=== PATIENT | female | born 1960 | race Caucasian/White ===

== ENCOUNTER 2016-08-09 00:42 | Inpatient (IN) | payer OTHER ==
[~2016-08-09] VITALS: Ht 157.5 cm; Wt 59.1 kg
[2016-08-09] VITALS (13 sets, daily range): BP systolic 93–147; BP diastolic 53–78; PULSE 73–96; RESP 16–24; TEMP 97.1–98.3; O2SAT 92–98
[~2016-08-09 00:42] MED LIST: ALEN1TAB48 PO; ASPI1TAB69 PO; CITA40TA4 PO; IPRASOL INH; LORA1TAB12 PO; MAGN400T2 PO; MONT10TA4 PO; MULT-120 PO; OMEP40CA2 PO; PERM5CRE TOPICAL; PRED10 PO; SACC1CAP3 PO; SYMB160A INH; THEO400T2 PO; TRAZ150T75 PO; VENTAER INH
--- NOTE | 2016-08-09 01:11 | PD ---
HPI Chief Complaint: Respiratory Symptoms Time Seen by Provider: 01:05 Travel History International Travel<30 days: No Contact w/Intl Traveler<30days: No Traveled to known affect area: No History of Present Illness HPI 56-year-old female presents to the emergency department by private transportation for complaint of progressively worsening shortness of breath with cough productive of green sputum 4 days. Patient has felt hot and cold but does not know she's had a fever she's been taking high-dose ibuprofen for musculoskeletal pain associated with possible lupus versus fibromyalgia. She is in the process of having an autoimmune workup by her primary care physician. 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 Patient did have a flu vaccine this season. Patient states she typically does not have yellow-green phlegm production. Patient did have use of her nebulized treatment DuoNeb just prior to arrival to the emergency department at her home. Patient continues to smoke cigarettes daily. Patient also reports prior history of myocardial infarction several years ago under cardiac catheterization which revealed 40% blockage of a single-vessel and did not have stenting. Patient does not report any chest pain or orthopnea PND or peripheral edema. PFSH Past Medical History Narrative Medical COPD, emphysema, CAD, myocardial infarction, cardiac catheterization, dyslipidemia, hypertension, sleep apnea, anxiety depression, GERD, , lap cholecystectomy, tobacco use, nursing notes reviewed Hx Anticoagulant Therapy: Yes (asa 81mg) Arthritis: No Asthma: No Autoimmune Disease: No Anxiety: Yes Depression: Yes Heart Rhythm Problems: Yes Cancer: No Cardiac Catheterization: Yes Cardiovascular Problems: Yes ([place] 2007) High Cholesterol: Yes Chemotherapy: No Chest Pain: No Congestive Heart Failure: No COPD: Yes Cerebrovascular Accident: No Diabetes: No Diminished Hearing: No Endocrine: No Gastrointestinal Disorders: Yes (GERD, CONSTIPATION) GERD: Yes Genitourinary: No Headaches: No Hepatitis: No Hiatal Hernia: No Hypertension: No Immune Disorder: No Implanted Vascular Access Dvce: No Kidney Stones: No Musculoskeletal: Yes (OSTEOPOROSIS) Neurologic: No Psychiatric: Yes (ANXIETY) Reproductive: No Respiratory: Yes (copd) Immunizations Current: Yes Migraines: No Myocardial Infarction: Yes Radiation Therapy: No Renal Failure: No Seizures: No Sickle Cell Disease: No Sleep Apnea: Yes Thyroid Disease: No Ulcer: No Menopausal: Yes : 3 Para: 1 Past Surgical History Abdominal Surgery: Yes (LAP. OBDULIO, HERNIA REPAIR) AICD: No Arteriovenous Shunt: No Section: Yes Cholecystectomy: Yes Ear Surgery: No Eye Surgery: No Genitourinary Surgery: Yes (KIDNEY BX) Gynecologic Surgery: Yes (C SECTION, MULTIPLE LAPAROSCOPIES,LYSIS ADHESIONS) Insulin Pump: No Joint Replacement: No Neurologic Surgery: No Oral Surgery: No Pacemaker: No Other Surgery: Yes Social History Alcohol Use: Yes (RARE) Tobacco Use: Yes (1 - 2 PPD) Substance Use: No Allergies-Medications (Allergen,Severity, Reaction): Coded Allergies: Keflex (Verified Allergy, Severe, Nausea/Vomiting, 08/09/16) Reported Meds & Prescriptions Reported Meds & Active Scripts Active Permethrin Topical (Permethrin) 5% Cream 1 Applic TOPICAL ONCE Reported Prednisone 10 Mg Tab 10 Mg PO EVERY OTHER DAY Ventolin Hfa 18 GM Inh (Albuterol Sulfate) 90 Mcg/Act Aer 2 Puff INH Q4H PRN Symbicort Inh (Budesonide/Formoterol Fumarate) 160-4.5 Mcg/Act Aero 2 Puff INH Q12HR Duoneb (Ipratropium-Albuterol Neb) 0.5-2.5 Mg/3 Ml Neb 1 Nebule INH Q6HR NEB PRN Multivitamin Women (Multiple Vitamins W/ Minerals) 1 Tab Tab 1 Tab PO DAILY Trazodone (Trazodone HCl) 150 Mg Tab 150 Mg PO HS Magnesium Oxide 400 Mg Tab 400 Mg PO DAILY Aspirin 81 Mg Tabdr 81 Mg PO DAILY Probiotic (Saccharomyces Boulardii) 250 Mg Cap 250 Mg PO DAILY Lorazepam 1 Mg Tab 1 Mg PO BID PRN Citalopram (Citalopram Hydrobromide) 40 Mg Tab 40 Mg PO DAILY Alendronate (Alendronate Sodium) 70 Mg Tab 70 Mg PO Q7D Montelukast (Montelukast Sodium) 10 Mg Tab 10 Mg PO HS Omeprazole 40 Mg Cap 40 Mg PO DAILY Theophylline ER 24 HR (Theophylline) 400 Mg Tab 400 Mg PO DAILY Review of Systems Except as stated in HPI: all other systems reviewed are Neg Physical Exam Narrative GENERAL: Well-developed well-nourished female in moderate respiratory distress with intermittent congested cough supplemental oxygen 2 L per minute nasal cannula O2 saturation 97% SKIN: Warm and dry. HEAD: Normocephalic. EYES: No scleral icterus. No injection or drainage. NECK: Supple, trachea midline. No JVD or lymphadenopathy. CARDIOVASCULAR: Regular rate and rhythm without murmurs, gallops, or rubs. RESPIRATORY: Breath sounds equal bilaterally diminished bilaterally with wheezing. No accessory muscle use. GASTROINTESTINAL: Abdomen soft, non-tender, nondistended. MUSCULOSKELETAL: No cyanosis, or edema. BACK: Nontender without obvious deformity. No CVA tenderness. Data Data Orders Complete Blood Count With Diff (08/09/16 01:05) Comprehensive Metabolic Panel (08/09/16 01:05) Magnesium (Mg) (08/09/16 01:05) Troponin I (08/09/16 01:05) Blood Culture (08/09/16 01:05) Iv Access Insert/Monitor (08/09/16 01:05) Electrocardiogram (08/09/16 01:05) Ecg Monitoring (08/09/16 01:05) Oximetry (08/09/16 01:05) Oxygen Administration (08/09/16 01:05) Chest, Single Ap (08/09/16 01:05) Sodium Chloride 0.9% Flush (Ns Flush) (08/09/16 01:15) Methylprednisolone So Succ Inj (Solumedr (08/09/16 01:15) Albuterol-Ipratropium Neb (Duoneb Neb) (08/09/16 01:15) MDM Medical Decision Making Medical Screen Exam Complete: Yes Emergency Medical Condition: Yes Medical Record Reviewed: Yes Interpretation(s) EKG: Normal sinus rhythm with occasional PACs no acute ST elevation nonspecific inferior ST segment flattening Differential Diagnosis Exacerbation COPD, acute bronchitis, pneumonia, CHF, ACS, myocardial infarction Narrative Course Patient placed on precision assembler bench IV access obtained specimens collected and sent for resulting patient administered Solu-Medrol 125 mg IV as well as DuoNeb updrafts 2 Mell Sands MD Aug 09, 2016 01:11
[2016-08-09] MEDS ORDERED: SODIUM CHLORIDE 0.9% FLUSH 5 ML FLUSH IVF PRN ×2 (01:15→02:45)
[2016-08-09] MEDS: RESP: ALBUTEROL 2.5 MG/IPRATROPIUM 0.5 MG NEB (SCH) INH ×2 (01:15→01:23)
[2016-08-09] MEDS ORDERED: methylPREDNISolone SOD SUCC 125 MG/2 ML VIAL IVP ONE (01:15)
[2016-08-09 01:22] LABS: AUTOMATED NEUTROPHIL # 6.7 TH/MM3 (1.8-7.7); BASOPHIL # 0.1 TH/MM3 (0-0.2); BASOPHIL % 0.8 % (0.0-2.0); EOSINOPHIL # 0.5 TH/MM3 (0-0.4); EOSINOPHIL % 4.2 % (0.0-4.0); HEMATOCRIT 38.2 % (35.0-46.0); LYMPH % 26.7 % (9.0-44.0); LYMPHOCYTE # 3.1 TH/MM3 (1.0-4.8); MEAN CELL VOLUME 91.4 FL (80.0-100.0); MEAN CORPUSCULAR HGB CONC 32.8 % (32.0-36.0); NEUT % 57.3 % (16.0-70.0); PLATELET COUNT 309 TH/MM3 (150-450); RED BLOOD COUNT 4.18 MIL/MM3 (4.00-5.30); RED CELL DISTRIBUTION WIDTH 13.6 % (11.6-17.2); WHITE BLOOD COUNT 11.7 TH/MM3 (4.0-11.0)
[2016-08-09 01:24] LABS: HEMO FLAGS DIFF FINAL
[2016-08-09 01:30] LABS: CHLORIDE 108 MEQ/L (98-107); POTASSIUM 3.3 MEQ/L (3.5-5.1); SODIUM (NA) 144 MEQ/L (136-145)
[2016-08-09] MEDS ORDERED: CYCL1TAB29 PO (01:30)
[2016-08-09] MEDS ORDERED: IBUP800T23 PO (01:30)
[2016-08-09 01:33] LABS: ANION GAP 10 MEQ/L (5-15); BICARBONATE 25.7 MEQ/L (21.0-32.0); BLOOD UREA NITROGEN 8 MG/DL (7-18)
[2016-08-09 01:36] LABS: ALT (GPT) 32 U/L (10-53); AST (GOT) 15 U/L (15-37); GLOMERULAR FILTRATION RATE 81 ML/MIN (>89)
[2016-08-09 01:38] LABS: TOTAL BILIRUBIN ADULT 0.2 MG/DL (0.2-1.0)
[2016-08-09 01:39] LABS: ALKALINE PHOSPHATASE 68 U/L (45-117)
[2016-08-09] MEDS ORDERED: RESP: ALBUTEROL 2.5 MG/IPRATROPIUM 0.5 MG NEB (SCH) NEB ONE (02:00)
[2016-08-09] MEDS ORDERED: AZITHROMYCIN INJ 500 MG in SODIUM CHLOR 0.9% 250 ML INJ 250 ML IV ONE (02:00)
--- NOTE | 2016-08-09 02:02 | RADHPO ---
EXAM DATE/TIME: 08/09/2016 01:34 [facility] COMPARISON: CHEST SINGLE AP, July 01, 2015, 12:18. INDICATIONS : Short of breath MEDICAL HISTORY : Chronic obstructive pulmonary disease. SURGICAL HISTORY : None. ENCOUNTER: Initial ACUITY: 4 - 6 days PAIN SCORE: Non-responsive. LOCATION: Bilateral chest FINDINGS: A single frontal view of the chest shows bullous emphysematous changes. No infiltrate or effusion. He art normal in size. Scoliotic curvature to the spine. CONCLUSION: Bullous emphysematous changes. No acute abnormality. Krish Navarro Jr., MD on August 09, 2016 at 2:00 Board Certified Radiologist. This report was verified electronically.
[2016-08-09] MEDS ORDERED: ONDANSETRON HCL 4 MG/2 ML VIAL IVP PRN (02:45)
[2016-08-09] MEDS ORDERED: BISACODYL 10 MG SUPP PR PRN (02:45)
[2016-08-09] MEDS ORDERED: ACETAMINOPHEN/HYDROcodone 325 MG/10 MG TAB PO PRN (02:45)
[2016-08-09] MEDS ORDERED: ACETAMINOPHEN 325 MG TAB PO PRN (02:45)
[2016-08-09] MEDS: RESP: ALBUTEROL 2.5 MG/IPRATROPIUM 0.5 MG NEB (PRN) NEB (05:18)
[2016-08-09] MEDS: LORazepam 1 MG TAB PO PRN ×2 (05:24→20:33)
[2016-08-09] MEDS: methylPREDNISolone SOD SUCC 40 MG/1 ML VIAL IV PUSH SCH ×4 (05:36→23:07)
[2016-08-09] MEDS: ACETAMINOPHEN/HYDROcodone 325 MG/5 MG TAB PO PRN ×2 (05:40→11:14)
[2016-08-09] MEDS: RESP: ALBUTEROL 2.5 MG/IPRATROPIUM 0.5 MG NEB (SCH) NEB ×4 (07:45→19:41)
[2016-08-09] MEDS ORDERED: SODIUM CHLORIDE 0.9% FLUSH 5 ML FLUSH IVF SCH (09:00)
[2016-08-09] MEDS: BUDESONIDE-FORMOTEROL 160/4.5 MCG INHALER INH SCH ×2 (09:12→20:32)
[2016-08-09] MEDS: guaiFENesin E.R. 600 MG TAB PO SCH ×2 (09:13→20:32)
[2016-08-09] MEDS: MAGNESIUM OXIDE 400 MG TAB PO SCH (09:13)
[2016-08-09] MEDS: THEOPHYLLINE 200 MG EXTENDED RELEASE CAP PO SCH (09:13)
[2016-08-09] MEDS: MULTIVITAMINS/MINERALS THERAPEUTIC TAB PO SCH (09:13)
[2016-08-09] MEDS: ASPIRIN EC 81 MG TABEC PO SCH (09:13)
[2016-08-09] MEDS: SODIUM CHLORIDE 0.9% FLUSH 5 ML FLUSH FLUSH SCH ×2 (09:14→20:31)
[2016-08-09] MEDS: LEVOFLOXACIN 750 MG PREMIX INJ 150 ML IV SCH (09:14)
[2016-08-09] MEDS: CITALOPRAM HYDROBROMIDE 40 MG TAB PO SCH (09:14)
[2016-08-09] MEDS: PANTOPRAZOLE SOD 40 MG DELAYED RELEASE TAB PO SCH (09:15)
[2016-08-09] MEDS ORDERED: POTASSIUM CHLORIDE 20 MEQ CONTROLLED RELEASE TAB PO ONE (16:45)
[2016-08-09] MEDS ORDERED: ENOXAPARIN SODIUM 40 MG/0.4 ML SYRINGE SQ SCH (17:00)
--- NOTE | 2016-08-09 17:02 | HHI.HP ---
cc: Maxi Mireles MD [facility] Primary [facility] Physician Maxi Mireles MD Admission Diagnosis exacerbation COPD/bronchitis Diagnoses: (1) COPD exacerbation Diagnosis: Principal (2) Leukocytosis Diagnosis: Principal (3) Hypokalemia Diagnosis: Principal Chief Complaint: cough, tight Travel History International Travel<30 Days: No Contact w/Intl Traveler <30 Da: No Traveled to Known Affected Are: No History of Present Illness 56-year-old female with history of COPD/emphysema, CAD, hypertension, hyperlipidemia, sleep apnea, GERD, anxiety and depression currently undergoing an autoimmune workup is admitted for COPD exacerbation. Patient states symptoms started on which was 4 days ago. She admits to having sweats and chills as well as productive cough of green sputum. She states she has been alternating ibuprofen 800 mg and Tylenol. She states she has sore throat on Tuesday and runny nose. Denies any rashes. Denies any leg edema. Patient 's senior process engineer is Dr. Flowers. Patient's primary care physician is Dr. Mireles. Patient states she is not coughing up as much but is still tight. She additionally states she has been having "squeezing" chest pain over the past week coming and going with associated shortness of breath and pain on exertion. She states she had take three 325 mg aspirin. She does not indicate current chest pain. 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 History of cardiac cath, but no stents. Review of Systems Other ROS x 10 negative unless otherwise stated in history of present illness. Past Family Social History Past Medical History COPD Coronary artery disease, [place] 2008 Hyperlipidemia Hypertension Sleep apnea Anxiety and depression GERD Past Surgical History per EMR Laparoscopic cholecystectomy hernia repair Multiple laparoscopies, lysis of adhesions Kidney biopsy Reported Medications Flexeril (Cyclobenzaprine HCl) 10 Mg Tab 10 Mg PO TID Ibuprofen 800 Mg Tab 800 Mg PO Q8H PRN Prednisone 10 Mg Tab 10 Mg PO EVERY OTHER DAY Ventolin Hfa 18 GM Inh (Albuterol Sulfate) 90 Mcg/Act Aer 2 Puff INH Q4H PRN Symbicort Inh (Budesonide/Formoterol Fumarate) 160-4.5 Mcg/Act Aero 2 Puff INH Q12HR Duoneb (Ipratropium-Albuterol Neb) 0.5-2.5 Mg/3 Ml Neb 1 Nebule INH Q6HR NEB PRN Multivitamin Women (Multiple Vitamins W/ Minerals) 1 Tab Tab 1 Tab PO DAILY Trazodone (Trazodone HCl) 150 Mg Tab 150 Mg PO HS Magnesium Oxide 400 Mg Tab 400 Mg PO DAILY Aspirin 81 Mg Tabdr 81 Mg PO DAILY Probiotic (Saccharomyces Boulardii) 250 Mg Cap 250 Mg PO DAILY Lorazepam 1 Mg Tab 1 Mg PO BID PRN Citalopram (Citalopram Hydrobromide) 40 Mg Tab 40 Mg PO DAILY Alendronate (Alendronate Sodium) 70 Mg Tab 70 Mg PO Q7D Montelukast (Montelukast Sodium) 10 Mg Tab 10 Mg PO HS Omeprazole 40 Mg Cap 40 Mg PO DAILY Theophylline ER 24 HR (Theophylline) 400 Mg Tab 400 Mg PO DAILY Allergies: Coded Allergies: Keflex (Verified Allergy, Severe, Nausea/Vomiting, 08/09/16) Family History Father: of [place] at age 42. Mother: of [place] at age 58. Sister: Lupus Social History Patient smokes 1-2 packs per day of cigarettes. Rarely drinks alcohol, once per year. Physical Exam Vital Signs Vital Signs Date Time Temp Pulse Resp B/P Pulse Ox O2 Delivery O2 Flow Rate FiO2 08/09/16 12:00 98.3 96 22 122/73 95 08/09/16 10:05 89 08/09/16 09:03 85 18 116/70 96 Nasal Cannula 2 08/09/16 07:45 96 Nasal Cannula 2.00 08/09/16 07:04 103 18 96 Nasal Cannula 2 08/09/16 07:00 90 93/53 96 Nasal Cannula 2 08/09/16 05:43 85 20 112/72 96 Nasal Cannula 2 08/09/16 04:10 96 Nasal Cannula 2 08/09/16 04:10 77 16 127/65 98 Nasal Cannula 2 08/09/16 01:00 30 93 Nasal Cannula 2 08/09/16 01:00 93 Nasal Cannula 2.00 08/09/16 01:00 93 Nasal Cannula 2 08/09/16 00:45 98.2 89 24 147/66 92 Physical Exam GENERAL: This is a well-nourished, well-developed patient, in no apparent distress. SKIN: No rashes, ecchymoses or lesions. Cool and dry. HEAD: Atraumatic. Normocephalic. EYES: No scleral icterus. No injection or drainage. ENT: Throat without erythema, tonsillar hypertrophy or exudate. Uvula midline. Airway patent. NECK: Trachea midline. CARDIOVASCULAR: Regular rate and rhythm without. RESPIRATORY: Tight. RR normal. MUSCULOSKELETAL: No lower extremity edema. NEUROLOGICAL: Awake and alert. Motor grossly within normal limits. Normal speech. Laboratory Laboratory Tests Test 08/09/16 01:00 White Blood Count 11.7 Red Blood Count 4.18 Hemoglobin 12.5 Hematocrit 38.2 Mean Corpuscular Volume 91.4 Mean Corpuscular Hemoglobin 30.0 Mean Corpuscular Hemoglobin 32.8 Concent Red Cell Distribution Width 13.6 Platelet Count 309 Mean Platelet Volume 8.0 Neutrophils (%) (Auto) 57.3 Lymphocytes (%) (Auto) 26.7 Monocytes (%) (Auto) 11.0 Eosinophils (%) (Auto) 4.2 Basophils (%) (Auto) 0.8 Neutrophils # (Auto) 6.7 Lymphocytes # (Auto) 3.1 Monocytes # (Auto) 1.3 Eosinophils # (Auto) 0.5 Basophils # (Auto) 0.1 CBC Comment DIFF FINAL Differential Comment Sodium Level 144 Potassium Level 3.3 Chloride Level 108 Carbon Dioxide Level 25.7 Anion Gap 10 Blood Urea Nitrogen 8 Creatinine 0.74 Estimat Glomerular Filtration 81 Rate Random Glucose 99 Calcium Level 9.0 Magnesium Level 2.0 Total Bilirubin 0.2 Aspartate Amino Transf 15 (AST/SGOT) Alanine Aminotransferase 32 (ALT/SGPT) Alkaline Phosphatase 68 Troponin I LESS THAN 0.02 B-Type Natriuretic Peptide 22 Total Protein 7.2 Albumin 3.5 Date/Time Procedure Status Source Growth 08/09/16 03:59 Gram Stain Received Sputum Expectorated Sputum Pending 08/09/16 03:59 Sputum Culture Received Sputum Expectorated Sputum Pending 08/09/16 02:30 Aerobic Blood Culture Received Blood Peripheral Pending 08/09/16 02:30 Anaerobic Blood Culture Received Blood Peripheral Pending Result Diagram: 08/09/16 0100 08/09/16 0100 Imaging Last Impressions Chest X-Ray 08/09/16 0105 Signed Impressions: Service Date/Time: Tuesday, August 09, 2016 01:34 - CONCLUSION: Bullous emphysematous changes. No acute abnormality. Krish Navarro Jr., MD Assessment and Plan Assessment and Plan 56-year-old female with: COPD exacerbation: Patient tight with productive cough. Afebrile. 92% oxygen saturation on room air on arrival. WBC 11.7. Chest x-ray personally reviewed with pulse of erythematous changes. Patient received one dose of azithromycin, DuoNeb's 2, and 125 mg slightly Medrol the ED. -Continue Levaquin. -Continue Solu-Medrol 40 mg every 6 hours -DuoNeb's every 4 hours while awake -DuoNeb's every 2 hours prn -O2 prn -Continue Symbicort, Singulair, and theophylline -Sputum culture pending. Hypokalemia: Mild 3.3. -20 mEq by mouth KCl ordered. -Monitor BMP Chest pain: On and off for one week. No current report of chest pain. Troponin 2 less than 0.02. EKG personally interpreted with normal sinus rhythm with PACs; no evidence of ischemia. -Patient to follow-up with with PCP. Due to COPD exacerbation she would be unable to receive stress test. -Continue daily home 81 mg aspirin Chronic medical problems include coronary artery disease, hypertension, hyperlipidemia, GERD, anxiety depression: -Continue home medications. DVT prevention: Lovenox, SCDs Written by Stacey Hernandes PA-C acting as scribe for Dr. Govea on 08/09/16 at 1555. The documentation accurately reflects the work and decisions performed face-to- face by ak Dr. Govea on 08/09/16 at 1555. Physician Certification 2 Midnight Certification Type: Admission for Inpatient Services Order for Inpatient Services The services are ordered in accordance with Medicare regulations or non- Medicare payer requirements, as applicable. In the case of services not specified as inpatient-only, they are appropriately provided as inpatient services in accordance with the 2-midnight benchmark. Estimated LOS (days): 2 days is the estimated time the patient will need to remain in the hospital, assuming treatment plan goals are met and no additional complications. Post-Hospital Plan: Not yet determined Stacey Hernandes Aug 09, 2016 17:02
--- NOTE | 2016-08-09 17:58 | EKG ---
Date Performed: 08/09/2016 Time Performed: 01:06:36 PTAGE: 56 years EKG: Sinus rhythm with PAC(s) Inferior T wave changes are nonspecific Since previous tracing, no significant change no lucero Borderline ECG PREVIOUS TRACING : 08/21/2014 10.11 DOCTOR: Jahaira Bahena Interpretating Date/Time 08/09/2016 17:57:15
[2016-08-09] MEDS ORDERED: MONTELUKAST SODIUM 10 MG TAB PO SCH (21:00)
[2016-08-09] MEDS ORDERED: traZODone HCL 50 MG TAB PO SCH (21:00)
[2016-08-09] MEDS: SODIUM CHLORIDE 0.9% FLUSH 5 ML FLUSH FLUSH PRN (23:07)
[2016-08-10] VITALS: BP 148/68; PULSE 82; RESP 17; TEMP 96.7; O2SAT 95
[2016-08-10 04:00] VITALS: BP 148/77; PULSE 93; RESP 18; TEMP 97.5; O2SAT 95
[2016-08-10] MEDS: ACETAMINOPHEN/HYDROcodone 325 MG/5 MG TAB PO PRN ×2 (04:03→09:59)
[2016-08-10 04:46] VITALS: O2SAT 97
[2016-08-10] MEDS: RESP: ALBUTEROL 2.5 MG/IPRATROPIUM 0.5 MG NEB (PRN) NEB (04:46)
[2016-08-10] MEDS: methylPREDNISolone SOD SUCC 40 MG/1 ML VIAL IV PUSH SCH ×2 (05:43→12:00)
[2016-08-10] MEDS: SODIUM CHLORIDE 0.9% FLUSH 5 ML FLUSH FLUSH PRN (05:44)
[2016-08-10 06:16] LABS: AUTOMATED NEUTROPHIL # 8.2 TH/MM3 (1.8-7.7); BASOPHIL # 0.1 TH/MM3 (0-0.2); BASOPHIL % 0.5 % (0.0-2.0); HEMATOCRIT 38.6 % (35.0-46.0); HEMO FLAGS DIFF FINAL; LYMPH % 11.3 % (9.0-44.0); LYMPHOCYTE # 1.1 TH/MM3 (1.0-4.8); MEAN CELL VOLUME 90.4 FL (80.0-100.0); MEAN CORPUSCULAR HEMOGLOBIN 30.1 PG (27.0-34.0); MEAN CORPUSCULAR HGB CONC 33.3 % (32.0-36.0); MONO % 6.5 % (0.0-8.0); NEUT % 81.7 % (16.0-70.0); PLATELET COUNT 302 TH/MM3 (150-450); RED BLOOD COUNT 4.27 MIL/MM3 (4.00-5.30); RED CELL DISTRIBUTION WIDTH 13.3 % (11.6-17.2); WHITE BLOOD COUNT 10.1 TH/MM3 (4.0-11.0)
[2016-08-10 06:31] LABS: BICARBONATE 25.8 MEQ/L (21.0-32.0)
[2016-08-10] MEDS: RESP: ALBUTEROL 2.5 MG/IPRATROPIUM 0.5 MG NEB (SCH) NEB ×2 (07:26→11:21)
[2016-08-10 07:30] VITALS: O2SAT 96
[2016-08-10 08:00] VITALS: BP 121/72; PULSE 73; RESP 21; TEMP 98.1; O2SAT 100
[2016-08-10] MEDS: BUDESONIDE-FORMOTEROL 160/4.5 MCG INHALER INH SCH (09:00)
[2016-08-10] MEDS: SODIUM CHLORIDE 0.9% FLUSH 5 ML FLUSH FLUSH SCH (09:57)
[2016-08-10] MEDS: LEVOFLOXACIN 750 MG PREMIX INJ 150 ML IV SCH (09:57)
[2016-08-10] MEDS: guaiFENesin E.R. 600 MG TAB PO SCH (09:58)
[2016-08-10] MEDS: PANTOPRAZOLE SOD 40 MG DELAYED RELEASE TAB PO SCH (09:58)
[2016-08-10] MEDS: CITALOPRAM HYDROBROMIDE 40 MG TAB PO SCH (09:58)
[2016-08-10] MEDS: ASPIRIN EC 81 MG TABEC PO SCH (09:58)
[2016-08-10] MEDS: MULTIVITAMINS/MINERALS THERAPEUTIC TAB PO SCH (09:59)
[2016-08-10] MEDS: MAGNESIUM OXIDE 400 MG TAB PO SCH (09:59)
[2016-08-10] MEDS: THEOPHYLLINE 200 MG EXTENDED RELEASE CAP PO SCH (11:42)
[2016-08-10 11:57] VITALS: BP 121/63; PULSE 93; RESP 22; TEMP 97.5; O2SAT 98
[2016-08-10] MEDS ORDERED: ZITH500T PO (12:39)
[2016-08-10] MEDS ORDERED: MEDR4PAK PO (12:39)
--- NOTE | 2016-08-10 12:45 | HHI.PR ---
Subjective Remarks The patient states that she feels 75% better. She's breathing well. Still has the cough but no further wheezing. She would like to go home today. No episodes of chest pain. Objective Vitals Vital Signs Date Time Temp Pulse Resp B/P Pulse Ox O2 Delivery O2 Flow Rate FiO2 08/10/16 11:57 97.5 93 22 121/63 98 08/10/16 11:43 18 08/10/16 08:00 98.1 73 21 121/72 100 08/10/16 07:30 96 Nasal Cannula 2.00 08/10/16 04:46 97 Nasal Cannula 2.00 08/10/16 04:00 97.5 93 18 148/77 95 08/10/16 00:00 96.7 82 17 148/68 95 08/09/16 20:09 73 08/09/16 20:00 97.1 80 20 121/60 97 08/09/16 19:41 96 Nasal Cannula 2.00 08/09/16 16:00 97.8 82 22 136/78 97 I/O 08/09/16 08/09/16 08/09/16 08/10/16 08/10/16 08/10/16 06:59 14:59 22:59 06:59 14:59 22:59 Intake Total 750 ml 0 ml 480 ml Output Total 2 ml Balance 750 ml 0 ml 478 ml Intake Oral 575 ml 480 ml IV Total 175 ml 0 ml 0 ml Output Urine Total 2 ml # Voids 5 2 # Bowel Movements 0 1 Result Diagram: 08/10/16 0545 08/10/16 0545 Objective Remarks GENERAL: Well-nourished, well-developed pleasant female patient. SKIN: Warm and dry. HEAD: Normocephalic. EYES: No scleral icterus. No injection or drainage. NECK: Supple, trachea midline. No JVD or lymphadenopathy. CARDIOVASCULAR: Regular rate and rhythm without murmurs, gallops, or rubs. RESPIRATORY: Good air movement with prolonged expiratory phase. No wheezing. No accessory muscle use. GASTROINTESTINAL: Abdomen soft, non-tender, nondistended. EXTREMITIES: No cyanosis, or edema. NEUROLOGICAL: Awake, alert, and oriented x 3. Non-focal. A/P Problem List: (1) COPD exacerbation ICD Code: J44.1 Status: Acute (2) Leukocytosis ICD Code: D72.829 Status: Acute (3) Hypokalemia ICD Code: E87.6 Status: Acute Assessment and Plan 56-year-old female with: COPD exacerbation: She had faster than expected clinical improvement overnight and is stable for discharge home today. She will go out on Zithromax, Medrol Dosepak and will continue on her home inhalers which she states that she has plenty of at home. -Continue Symbicort, Singulair, and theophylline Chest pain: On and off for one week. No current report of chest pain. Troponin 2 less than 0.02. EKG personally interpreted with normal sinus rhythm with PACs; no evidence of ischemia. -Patient to follow-up with with PCP Dr. Mireles in 2-3 days. Recommend outpatient stress test with COPD exacerbation is resolved. -Continue daily home 81 mg aspirin. Return to ER for chest pain that is severe or does not resolve within several minutes. Chronic medical problems include coronary artery disease, hypertension, hyperlipidemia, GERD, anxiety depression: -Continue home medications. Ronda Govea MD Aug 10, 2016 12:45
[2017-01-12] MEDS ORDERED: MULTTAB67 PO (10:02)
[2017-01-12] MEDS ORDERED: TRAZ1TAB45 PO (10:02)
[2017-01-12] MEDS ORDERED: ASPI-110 PO (10:02)
[2017-01-12] MEDS ORDERED: ATOR20TA15 PO (14:10)
[2017-01-12] MEDS ORDERED: NITR1SUB3 SL (14:10)
[2017-01-12] MEDS ORDERED: MELO7.5T4 PO (14:10)
[2017-01-12] MEDS ORDERED: PRAM0.25 PO (14:10)
[2017-01-12] MEDS ORDERED: ISOS10TA3 PO (14:10)
[2017-01-12] MEDS ORDERED: OXYGENDME NAS.CANULA (15:31)
== END 2016-08-10 13:06 | disposition home or self-care (01) | DRG 192 ==
LOC: PHED 00:42 → PHEDA 02:41 → PHEDH 06:29 → PH3A 09:26 → OBSVTOIN 16:23
PROVIDERS: ADMIT Family Medicine; ATTEND Family Medicine
PROC: 3E0F7GC Introduction of Other Therapeutic Substance into Respiratory Tract, Via Natural or Artificial Opening (ICD-10-PCS; principal; 2016-08-09)
DX: J44.1 Chronic obstructive pulmonary disease with (acute) exacerbation (principal); Z99.81 Dependence on supplemental oxygen; F17.210 Nicotine dependence, cigarettes, uncomplicated; I25.2 Old myocardial infarction; E78.5 Hyperlipidemia, unspecified; G47.30 Sleep apnea, unspecified; K21.9 Gastro-esophageal reflux disease without esophagitis; I25.10 Atherosclerotic heart disease of native coronary artery without angina pectoris; I10 Essential (primary) hypertension; F41.8 Other specified anxiety disorders; E78.00 Pure hypercholesterolemia, unspecified; M81.0 Age-related osteoporosis without current pathological fracture; M79.1 Myalgia; E87.6 Hypokalemia; Z79.52 Long term (current) use of systemic steroids; Z82.49 Family history of ischemic heart disease and other diseases of the circulatory system
CPT/HCPCS: 71010; 80048; 80053; 83735; 83880; 84484; 85025; 86403; 87040; 87070; 87077; 87186; 87205; 93005; 94640; 94664; 96365; 96375; J0456; J1650; J1956; J2920; J2930; J7050

== ENCOUNTER → 2016-09-06 | Outpatient (CLI) | payer OTHER ==
[~2016-09-06] MED LIST changes: +ASPI-110 PO; +ATOR20TA15 PO; +CYCL1TAB29 PO; +IBUP800T23 PO; +ISOS10TA3 PO; +MEDR4PAK PO; +MELO7.5T4 PO; +MULTTAB67 PO; +NITR1SUB3 SL; +OXYGENDME NAS.CANULA; -PERM5CRE TOPICAL; +PRAM0.25 PO; +TRAZ1TAB45 PO; +ZITH500T PO
== END ==
LOC: CLAB 07:28
PROVIDERS: ATTEND Family Medicine
DX: J44.1 Chronic obstructive pulmonary disease with (acute) exacerbation (principal)
CPT/HCPCS: 36415; 80198

== ENCOUNTER → 2016-10-26 | Outpatient (CLI) | payer OTHER ==
[2016-10-26 10:42] LABS: HDL CHOLESTEROL 60.1 MG/DL (40.0-60.0)
[2016-10-26 10:44] LABS: ALT (GPT) 20 U/L (10-53); AST (GOT) 16 U/L (15-37); LDL CHOLESTEROL 114 MG/DL (0-99)
== END ==
LOC: CLAB 09:56
PROVIDERS: ATTEND Internal Medicine Interventional Cardiology
DX: E78.00 Pure hypercholesterolemia, unspecified (principal); J44.9 Chronic obstructive pulmonary disease, unspecified; I25.118 Atherosclerotic heart disease of native coronary artery with other forms of angina pectoris; R07.89 Other chest pain; R06.02 Shortness of breath
CPT/HCPCS: 36415; 80061; 84450; 84460; 86140

== ENCOUNTER → 2016-11-05 | Outpatient (CLI) | payer OTHER ==
[2016-11-05 12:59] LABS: BLOOD GAS BASE EXCESS 1.3 mmol/L (-2-2); BLOOD GAS CARBOXYHEMOGLOBIN 6.4 % (0-4); BLOOD GAS HCO3 26 mmol/L (22-26); BLOOD GAS METHEMOGLOBIN 1.3 % (0-2); BLOOD GAS O2 HGB SATURATION 86 % (90-100); BLOOD GAS OXYGEN CONTENT 15.6 Vol % (12.0-20.0); BLOOD GAS PCO2 41 mmHg (38-42); BLOOD GAS PO2 64 mmHg (61-120); BLOOD GAS TOTAL HGB 12.9 G/DL (12.0-16.0); TEMP CORR TO 98.6
[2016-11-05 13:00] LABS: CRITICAL VALUE YES; DRAW SITE RT RADIAL; FIO2 21 %; NUMBER OF ARTERIAL PUNCTURES 1; STAT NO; ULNAR PULSE PRESENT
--- NOTE | 2016-11-10 08:30 | RSPPFT ---
DATE OF PROCEDURE: 11/05/16 COMMENTS: Spirometry with FVC of 0.9, FEV1 of 0.4, FEV1/FVC ratio at 41%. Slow vital capacity is 48% of predicted. TLC is 142%. Diffusion capacity is severely reduced. IMPRESSION: 1. Very severe airways obstruction. 2. Positive and significant response to acutely inhaled bronchodilator. 3. No evidence of airways restriction. 4. Severe reduction in diffusion capacity.
== END ==
LOC: HRSP 12:15
PROVIDERS: ATTEND Internal Medicine Sleep Medicine
DX: R06.02 Shortness of breath (principal)
CPT/HCPCS: 36600; 82805; 94060; 94726; 94729

== ENCOUNTER → 2016-12-27 | Outpatient (CLI) | payer OTHER ==
[2016-12-27 10:51] LABS: AUTOMATED NEUTROPHIL # 3.5 TH/MM3 (1.8-7.7); BASOPHIL # 0.1 TH/MM3 (0-0.2); BASOPHIL % 1.6 % (0.0-2.0); EOSINOPHIL # 0.5 TH/MM3 (0-0.4); EOSINOPHIL % 5.6 % (0.0-4.0); HEMATOCRIT 35.6 % (35.0-46.0); HEMO FLAGS DIFF FINAL; LYMPH % 39.5 % (9.0-44.0); LYMPHOCYTE # 3.3 TH/MM3 (1.0-4.8); MEAN CELL VOLUME 87.1 FL (80.0-100.0); MEAN CORPUSCULAR HEMOGLOBIN 28.4 PG (27.0-34.0); MEAN CORPUSCULAR HGB CONC 32.6 % (32.0-36.0); MONO % 11.1 % (0.0-8.0); NEUT % 42.2 % (16.0-70.0); PLATELET COUNT 247 TH/MM3 (150-450); RED BLOOD COUNT 4.09 MIL/MM3 (4.00-5.30); RED CELL DISTRIBUTION WIDTH 15.4 % (11.6-17.2); WHITE BLOOD COUNT 8.3 TH/MM3 (4.0-11.0)
[2016-12-27 11:36] LABS: ALKALINE PHOSPHATASE 53 U/L (45-117); ALT (GPT) 22 U/L (10-53); ANION GAP 8 MEQ/L (5-15); AST (GOT) 13 U/L (15-37); BICARBONATE 26.1 MEQ/L (21.0-32.0); BLOOD UREA NITROGEN 15 MG/DL (7-18); CHLORIDE 107 MEQ/L (98-107); GLOMERULAR FILTRATION RATE 78 ML/MIN (>89); GLUCOSE,FASTING 96 MG/DL (74-99); POTASSIUM 3.5 MEQ/L (3.5-5.1); SODIUM (NA) 141 MEQ/L (136-145); THEOPHYLLINE 4.7 MCG/ML (10.0-20.0); TOTAL BILIRUBIN ADULT 0.3 MG/DL (0.2-1.0)
== END ==
LOC: CLAB 10:12
PROVIDERS: ATTEND Internal Medicine Interventional Cardiology
DX: Z00.00 Encounter for general adult medical examination without abnormal findings (principal); G47.33 Obstructive sleep apnea (adult) (pediatric); E78.00 Pure hypercholesterolemia, unspecified; I25.118 Atherosclerotic heart disease of native coronary artery with other forms of angina pectoris; J44.9 Chronic obstructive pulmonary disease, unspecified; R07.89 Other chest pain
CPT/HCPCS: 36415; 80053; 80061; 80198; 84443; 85025

== ENCOUNTER → 2017-01-13 | Day surgery (SDC) | payer OTHER ==
[~2017-01-13] VITALS: Ht 157.5 cm; Wt 54.4 kg
[~2017-01-13] MED LIST changes: +*RESP: ALBUTEROL 2.5 MG/3 ML NEB (PRN) PERIprocedural Use ONLY NEB ONE; -ASPI1TAB69 PO; +CHLORHEXIDINE GLUCONATE 2 % 1 PACK (2 CLOTHS) TOPICAL PRN; -CYCL1TAB29 PO; +DO NOT ADM ANY ANTICOAGULANT DRUGS PRN; +EPINEPHrine HCL (1:1000) 30 MG/30 ML VIAL ONE; +FAMOTIDINE 20 MG/2 ML VIAL ONE; +INSULIN HUMAN REGULAR 1,000 UNITS/10 ML VIAL SQ PRN; +LACTATED RINGER'S 1000 ML INJ 1,000 ML IV ONE; +LACTATED RINGER'S 1000 ML IV PRN; +LIDOCAINE HCL 2% 50 ML VIAL ONE; +LIDOCAINE VISCOUS 2% SOLN 15 ML UDC ONE; -MAGN400T2 PO; -MEDR4PAK PO; +METOPROLOL TARTRATE 25 MG TAB PO PRN; +MIDAZOLAM HCL 2 MG/2 ML VIAL ONE; -MULT-120 PO; +ONDANSETRON HCL 4 MG/2 ML VIAL IV PUSH ONE; +PHENYLEPH/NS 1000 MCG/10 ML SYR IV ONE; +POVIDONE IODINE 5% (ANTISEPSIS KIT) 4 APPLICATIONS EACH NARE PRN; +PROPOFOL 200 MG/20 ML AMP IV ONE; -SACC1CAP3 PO; +SODIUM CHLORID 0.9% 500 ML IV PRN; -TRAZ150T75 PO; -ZITH500T PO; +ePHEDrine/NS 25 MG/5 ML SYR IV ONE; +methylPREDNISolone SOD SUCC 125 MG/2 ML VIAL ONE
[2017-01-13 06:46] VITALS: BP 101/61; PULSE 79; RESP 22; TEMP 98.4; O2SAT 99
[2017-01-13 07:20] LABS: AUTOMATED NEUTROPHIL # 5.7 TH/MM3 (1.8-7.7); BASOPHIL # 0.1 TH/MM3 (0-0.2); BASOPHIL % 1.4 % (0.0-2.0); EOSINOPHIL # 0.4 TH/MM3 (0-0.4); EOSINOPHIL % 3.9 % (0.0-4.0); HEMATOCRIT 37.7 % (35.0-46.0); HEMO FLAGS DIFF FINAL; LYMPH % 27.7 % (9.0-44.0); LYMPHOCYTE # 2.8 TH/MM3 (1.0-4.8); MEAN CORPUSCULAR HEMOGLOBIN 29.1 PG (27.0-34.0); MEAN CORPUSCULAR HGB CONC 33.4 % (32.0-36.0); MONO % 10.9 % (0.0-8.0); NEUT % 56.1 % (16.0-70.0); PLATELET COUNT 267 TH/MM3 (150-450); RED BLOOD COUNT 4.33 MIL/MM3 (4.00-5.30); RED CELL DISTRIBUTION WIDTH 15.5 % (11.6-17.2); WHITE BLOOD COUNT 10.1 TH/MM3 (4.0-11.0)
[2017-01-13 07:27] LABS: APTT (PATIENT) 26.2 SEC (24.3-30.1); PROTHROMBIN TIME - PATIENT 11.1 SEC (9.8-11.6)
[2017-01-13 09:20] VITALS: BP 107/56; PULSE 88; RESP 18; TEMP 98.5; O2SAT 96
--- NOTE | 2017-01-13 11:04 | MR ---
cc: MARIBEL LÓPEZ DATE: 01/13/2017 PROCEDURE Fiberoptic bronchoscopy, flexible. REASON FOR BRONCHOSCOPY Hemoptysis, rule out underlying malignancy, rule out chronic inflammatory process. DETAILS OF PROCEDURE Fiberoptic bronchoscopy performed via LMA. Vocal cords intact. Trachea mildly hyperemic. Birdie sharp. Right main stem bronchus, right upper, middle and lower lobes, left main stem bronchus, left upper and lower lobes inspected. No obstructive pathology or mass lesion seen. Washings obtained from both sides of the tracheobronchial tree for routine, TB, fungal cultures as well as cytological examination. Cytologic brushings left lower lobe obtained which showed evidence of more significant hyperemia than the rest of the tracheobronchial tree, sent for cytological examination. Procedure well-tolerated. Patient transferred to Recovery in stable condition. IMPRESSION 1. Moderate tracheobronchitis. 2. No obstruction or mass lesion. 3. Samples obtained as above. 4. Procedure well-tolerated. 5. Patient transferred to Recovery in stable condition. MD SHELLY Lynn/HODAN /8:35 AM /10:58 AM
== END | disposition home or self-care (01) ==
LOC: HSDC 05:57
PROVIDERS: ATTEND Internal Medicine Sleep Medicine
DX: J40 Bronchitis, not specified as acute or chronic (principal); J44.9 Chronic obstructive pulmonary disease, unspecified; I50.9 Heart failure, unspecified; I11.0 Hypertensive heart disease with heart failure; E78.5 Hyperlipidemia, unspecified; J96.10 Chronic respiratory failure, unspecified whether with hypoxia or hypercapnia; G47.33 Obstructive sleep apnea (adult) (pediatric); K21.9 Gastro-esophageal reflux disease without esophagitis; I25.2 Old myocardial infarction; I25.10 Atherosclerotic heart disease of native coronary artery without angina pectoris; G25.81 Restless legs syndrome; F17.200 Nicotine dependence, unspecified, uncomplicated; Z88.1 Allergy status to other antibiotic agents; Z95.5 Presence of coronary angioplasty implant and graft
CPT/HCPCS: 31622; 85025; 85610; 85730; 87015; 87070; 87102; 87116; 87205; 87206; 94664; J2250; J2370; J2405; J2930; J7120; J7613; J0171

== ENCOUNTER → 2017-07-05 | Outpatient (CLI) | payer OTHER ==
[~2017-07-05] MED LIST changes: -*RESP: ALBUTEROL 2.5 MG/3 ML NEB (PRN) PERIprocedural Use ONLY NEB ONE; -ASPI-110 PO; +ASPI1TAB57 PO; -CHLORHEXIDINE GLUCONATE 2 % 1 PACK (2 CLOTHS) TOPICAL PRN; -DO NOT ADM ANY ANTICOAGULANT DRUGS PRN; -EPINEPHrine HCL (1:1000) 30 MG/30 ML VIAL ONE; -FAMOTIDINE 20 MG/2 ML VIAL ONE; +IBUP1TAB7 PO; -IBUP800T23 PO; -INSULIN HUMAN REGULAR 1,000 UNITS/10 ML VIAL SQ PRN; -LACTATED RINGER'S 1000 ML INJ 1,000 ML IV ONE; -LACTATED RINGER'S 1000 ML IV PRN; -LIDOCAINE HCL 2% 50 ML VIAL ONE; -LIDOCAINE VISCOUS 2% SOLN 15 ML UDC ONE; +MELO7.5T27 PO; -MELO7.5T4 PO; -METOPROLOL TARTRATE 25 MG TAB PO PRN; -MIDAZOLAM HCL 2 MG/2 ML VIAL ONE; -ONDANSETRON HCL 4 MG/2 ML VIAL IV PUSH ONE; -PHENYLEPH/NS 1000 MCG/10 ML SYR IV ONE; -POVIDONE IODINE 5% (ANTISEPSIS KIT) 4 APPLICATIONS EACH NARE PRN; -PROPOFOL 200 MG/20 ML AMP IV ONE; -SODIUM CHLORID 0.9% 500 ML IV PRN; +TRAZ1TAB14 PO; -TRAZ1TAB45 PO; -ePHEDrine/NS 25 MG/5 ML SYR IV ONE; -methylPREDNISolone SOD SUCC 125 MG/2 ML VIAL ONE
[2017-07-05 12:46] LABS: ANION GAP 7 MEQ/L (5-15); AST (GOT) 13 U/L (15-37); BICARBONATE 29.2 MEQ/L (21.0-32.0); BLOOD UREA NITROGEN 8 MG/DL (7-18); CHLORIDE 106 MEQ/L (98-107); GLOMERULAR FILTRATION RATE 76 ML/MIN (>89); GLUCOSE,FASTING 98 MG/DL (74-99); SODIUM (NA) 142 MEQ/L (136-145); THEOPHYLLINE 7.8 MCG/ML (10.0-20.0)
[2017-07-05 12:47] LABS: ALT (GPT) 18 U/L (10-53)
[2017-07-05 12:50] LABS: ALKALINE PHOSPHATASE 60 U/L (45-117); LDL CHOLESTEROL 54 MG/DL (0-99); TOTAL BILIRUBIN ADULT 0.2 MG/DL (0.2-1.0)
== END ==
LOC: CLAB 11:52
PROVIDERS: ATTEND Internal Medicine Interventional Cardiology
DX: I25.111 Atherosclerotic heart disease of native coronary artery with angina pectoris with documented spasm (principal); E78.2 Mixed hyperlipidemia; I10 Essential (primary) hypertension; J44.9 Chronic obstructive pulmonary disease, unspecified; R06.02 Shortness of breath; E78.00 Pure hypercholesterolemia, unspecified
CPT/HCPCS: 36415; 80053; 80061; 80198

== ENCOUNTER → 2017-09-01 | Outpatient (CLI) | payer OTHER | LOC: CLAB 11:18 | PROVIDERS: ATTEND Internal Medicine Sleep Medicine | DX: R06.89 Other abnormalities of breathing (principal) | CPT/HCPCS: 36600; 82805 ==

== ENCOUNTER 2017-10-22 23:42 | Observation (INO) | payer OTHER ==
[~2017-10-22] VITALS: Ht 157.5 cm; Wt 45.1 kg
[2017-10-23] VITALS (14 sets, daily range): BP systolic 96–161; BP diastolic 53–85; PULSE 71–95; RESP 16–18; TEMP 96.2–98.1; O2SAT 94–97
--- NOTE | 2017-10-23 00:29 | PD ---
HPI Chief Complaint: Respiratory Symptoms Time Seen by Provider: 00:14 Travel History International Travel<30 days: No Contact w/Intl Traveler<30days: No Traveled to known affect area: No History of Present Illness HPI 57-year-old female presents to the emergency department by EMS transport from home for shortness of breath. Patient has known COPD requiring supplemental oxygen 2 L/min nasal cannula at all times as well as CPAP. Patient is on the care of Dr. Gayatri Mendieta. Patient states that this is a moderate exacerbation of her COPD. Patient was given updraft by EMS transport and Solu-Medrol prior to arrival to the emergency department. Patient continues to smoke cigarettes. Patient has history of CAD with previous NM. Patient has had some chest tightness that is typical of her COPD. No referred neck jaw back shoulder arm or abdominal pain. Patient has 2 pillow orthopnea at all times which is not worsened. Patient denies any lower extremity pain or swelling. Patient has had productive cough but does not report any hemoptysis. Patient denies fever or chills. Due to multiple nebulized treatments at home without symptom relief called EMS for transport to the emergency department. PFSH Past Medical History Narrative Medical COPD CAD NM dyslipidemia hypertension restless leg syndrome; tobaccoism; nursing notes reviewed Hx Anticoagulant Therapy: Yes (asa 81mg) Arthritis: No Asthma: No Autoimmune Disease: No Anxiety: Yes Depression: Yes Heart Rhythm Problems: No Cancer: No Cardiac Catheterization: Yes Cardiovascular Problems: Yes (CHEST PAIN AT TIMES) High Cholesterol: Yes Chemotherapy: No Chest Pain: No Congestive Heart Failure: No COPD: Yes Cerebrovascular Accident: No Diabetes: No Diminished Hearing: No Endocrine: No Gastrointestinal Disorders: Yes (GERD, CONSTIPATION) GERD: Yes (GERD) Genitourinary: No Headaches: No Hepatitis: No Hiatal Hernia: No Heparin Induced Thrombocytopen: No Hypertension: No Immune Disorder: No Implanted Vascular Access Dvce: No Kidney Stones: No Musculoskeletal: Yes (OA) Neurologic: Yes (RLS) Psychiatric: Yes (ANXIETY, DEPRESSION) Reproductive: Yes (FIBROID TUMORS) Respiratory: Yes (SLEEP APNEA USE CPAP, COPD, O2 PRN, EMPHYSEMA) Immunizations Current: Yes Migraines: No Myocardial Infarction: Yes Radiation Therapy: No Renal Failure: No Seizures: No Sickle Cell Disease: No Sleep Apnea: Yes Thyroid Disease: No Ulcer: No ?: Not Menopausal: Yes : 3 Para: 1 Past Surgical History Abdominal Surgery: Yes (LAP. OBDULIO, HERNIA REPAIR) AICD: No Arteriovenous Shunt: No Body Medical Devices: MESS, TITANIUM SCREW IN ABDOMEN Cardiac Surgery: Yes (CARDIAC CATH) Section: Yes Cholecystectomy: Yes Ear Surgery: No Endocrine Surgery: No Eye Surgery: No Genitourinary Surgery: Yes (KIDNEY BX) Gynecologic Surgery: Yes (C SECTION, MULTIPLE LAPAROSCOPIES,LYSIS ADHESIONS) Insulin Pump: No Joint Replacement: No Neurologic Surgery: No Oral Surgery: No Pacemaker: No Thoracic Surgery: No Other Surgery: Yes Social History Alcohol Use: Yes (RARE) Tobacco Use: Yes (1 - 2 PPD) Substance Use: No Allergies-Medications (Allergen,Severity, Reaction): Coded Allergies: cephalexin (Verified Allergy, Severe, Nausea/Vomiting, 10/23/17) Reported Meds & Prescriptions Reported Meds & Active Scripts Active Reported Oxygen (O2) Device 2 Liter RBUCE.CANULA CONTINUOUS PRN Oxygen Concentrator Portable Gaseous 2 L/min via Nasal Canula Continuous For 99 months Nitroglycerin SL (Nitroglycerin) 0.4 Mg Subl 0.4 Mg SL DIRECTED PRN ONE TABLET UNDER THE TONGUE NEEDED FOR CHEST PAIN, MAY REPEAT EVERY FIVE MINUTES FOR A TOTAL OF 3 DOSES OR CALL 911 IF NO RELIEF Pramipexole (Pramipexole Dihydrochloride) 0.25 Mg Tab 0.25 Mg PO HS Atorvastatin (Atorvastatin Calcium) 20 Mg Tab 20 Mg PO HS Isosorbide Mononitrate 10 Mg Tab 10 Mg PO BID Take 2 doses 7 hours apart. Meloxicam 7.5 Mg Tab 7.5 Mg PO DAILY Trazodone (Trazodone HCl) 150 Mg Tablet 150 Mg PO HS Aspirin 81 (Aspirin) 81 Mg Tabdr 81 Mg PO DAILY Ibuprofen 800 Mg Tab 800 Mg PO Q8H PRN Prednisone 10 Mg Tab 10 Mg PO EVERY OTHER DAY Ventolin Hfa 18 GM Inh (Albuterol Sulfate) 90 Mcg/Act Aer 2 Puff INH Q4H PRN Symbicort Inh (Budesonide/Formoterol Fumarate) 160-4.5 Mcg/Act Aero 2 Puff INH Q12HR Duoneb (Ipratropium-Albuterol Neb) 0.5-2.5 Mg/3 Ml Neb 1 Nebule INH Q6HR NEB PRN Lorazepam 1 Mg Tab 1 Mg PO BID PRN Citalopram (Citalopram Hydrobromide) 40 Mg Tab 40 Mg PO DAILY Alendronate (Alendronate Sodium) 70 Mg Tab 70 Mg PO Q7D Montelukast (Montelukast Sodium) 10 Mg Tab 10 Mg PO HS Omeprazole 40 Mg Cap 40 Mg PO DAILY Theophylline ER 24 HR (Theophylline) 400 Mg Tab 400 Mg PO DAILY Review of Systems Except as stated in HPI: all other systems reviewed are Neg Physical Exam Narrative GENERAL: Well-developed thin female in mild respiratory distress SKIN: Warm and dry. HEAD: Normocephalic. EYES: No scleral icterus. No injection or drainage. NECK: Supple, trachea midline. No JVD or lymphadenopathy. CARDIOVASCULAR: Regular rate and rhythm without murmurs, gallops, or rubs. RESPIRATORY: Breath sounds equal bilaterally with expiratory wheezes. No accessory muscle use. GASTROINTESTINAL: Abdomen soft, non-tender, nondistended. MUSCULOSKELETAL: No cyanosis, or edema. BACK: Nontender without obvious deformity. No CVA tenderness. Data Data Last Documented VS Vital Signs Date Time Temp Pulse Resp B/P (MAP) Pulse Ox O2 Delivery O2 Flow Rate FiO2 10/23/17 01:30 87 16 96/56 (69) 96 Nasal Cannula 2.00 10/23/17 00:19 98.0 Orders Orders Complete Blood Count With Diff (10/23/17 00:14) Comprehensive Metabolic Panel (10/23/17 00:14) B-Type Natriuretic Peptide (10/23/17 00:14) Act Partial Throm Time (Ptt) (10/23/17 00:14) Prothrombin Time / Inr (Pt) (10/23/17 00:14) Magnesium (Mg) (10/23/17 00:14) Ckmb (Isoenzyme) Profile (10/23/17 00:14) Troponin I (10/23/17 00:14) Urinalysis - C+S If Indicated (10/23/17 00:14) Blood Culture (10/23/17 00:14) Iv Access Insert/Monitor (10/23/17 00:14) Electrocardiogram (10/23/17 00:14) Ecg Monitoring (10/23/17 00:14) Oximetry (10/23/17 00:14) Oxygen Administration (10/23/17 00:14) Chest, Single Ap (3/18/18 00:14) Sodium Chloride 0.9% Flush (Ns Flush) (10/23/17 00:15) Albuterol-Ipratropium Neb (Duoneb Neb) (10/23/17 00:15) Sodium Chlorid 0.9% 500 Ml Inj (Ns 500 M (10/23/17 02:15) Admit Order (Ed Use Only) (10/23/17 ) Spa Supervisor / Telemetry [place].Q8H (10/23/17 02:13) Diet Heart Healthy (10/23/17 Breakfast) Activity Oob With Assistance (10/23/17 02:13) Notify Dr: Other (10/23/17 02:13) Albuterol-Ipratropium Neb (Duoneb Neb) (10/23/17 02:15) Labs Laboratory Tests Test 10/23/17 00:38 10/23/17 02:03 White Blood Count 7.2 TH/MM3 Red Blood Count 4.23 MIL/MM3 Hemoglobin 11.8 GM/DL Hematocrit 36.2 % Mean Corpuscular Volume 85.6 FL Mean Corpuscular Hemoglobin 27.9 PG Mean Corpuscular Hemoglobin Concent 32.6 % Red Cell Distribution Width 16.2 % Platelet Count 235 TH/MM3 Mean Platelet Volume 8.2 FL Neutrophils (%) (Auto) 59.2 % Lymphocytes (%) (Auto) 26.1 % Monocytes (%) (Auto) 7.9 % Eosinophils (%) (Auto) 5.4 % Basophils (%) (Auto) 1.4 % Neutrophils # (Auto) 4.2 TH/MM3 Lymphocytes # (Auto) 1.9 TH/MM3 Monocytes # (Auto) 0.6 TH/MM3 Eosinophils # (Auto) 0.4 TH/MM3 Basophils # (Auto) 0.1 TH/MM3 CBC Comment DIFF FINAL Differential Comment Prothrombin Time 10.8 SEC Prothromb Time International Ratio 1.1 RATIO Activated Partial Thromboplast Time 25.3 SEC Blood Urea Nitrogen 7 MG/DL Creatinine 0.56 MG/DL Random Glucose 93 MG/DL Total Protein 6.7 GM/DL Albumin 3.6 GM/DL Calcium Level 8.5 MG/DL Magnesium Level 1.7 MG/DL Alkaline Phosphatase 54 U/L Aspartate Amino Transf (AST/SGOT) 10 U/L Alanine Aminotransferase (ALT/SGPT) 13 U/L Total Bilirubin LESS THAN 0.1 MG/DL Sodium Level 142 MEQ/L Potassium Level 3.6 MEQ/L Chloride Level 110 MEQ/L Carbon Dioxide Level 24.0 MEQ/L Anion Gap 8 MEQ/L Estimat Glomerular Filtration Rate 111 ML/MIN Total Creatine Kinase 32 U/L Troponin I LESS THAN 0.02 NG/ML B-Type Natriuretic Peptide 14 PG/ML Urine Color YELLOW Urine Turbidity CLEAR Urine pH 5.5 Urine Specific [place] 1.020 Urine Protein NEG mg/dL Urine Glucose (UA) NEG mg/dL Urine Ketones NEG mg/dL Urine Occult Blood NEG Urine Nitrite NEG Urine Bilirubin NEG Urine Urobilinogen 0.2 MG/DL Urine Leukocyte Esterase NEG Urine RBC 0-2 /hpf Urine WBC 0-2 /hpf Urine Squamous Epithelial Cells 0-5 /hpf Urine Bacteria NONE /hpf Microscopic Urinalysis Comment CULT NOT INDICATED MDM Medical Decision Making Medical Screen Exam Complete: Yes Emergency Medical Condition: Yes Medical Record Reviewed: Yes Interpretation(s) EKG: Normal sinus rhythm rate 80 artifact present rare PAC no acute ST elevation or injury pattern change noted CBC & BMP Diagram 10/23/17 00:38 Total Protein 6.7, Albumin 3.6, Calcium Level 8.5, Magnesium Level 1.7, Alkaline Phosphatase 54, Aspartate Amino Transf (AST/SGOT) 10 L, Alanine Aminotransferase (ALT/SGPT) 13, Total Bilirubin LESS THAN 0.1 L Vital Signs Date Time Temp Pulse Resp B/P (MAP) Pulse Ox O2 Delivery O2 Flow Rate FiO2 10/23/17 01:30 87 16 96/56 (69) 96 Nasal Cannula 2.00 10/23/17 00:31 97 Nasal Cannula 2.00 10/23/17 00:31 97 Nasal Cannula 2.00 10/23/17 00:23 18 97 Nasal Cannula 2.00 10/23/17 00:19 98.0 81 18 102/56 (71) 97 cxr: emphysema per reading radiologist with right base atelectasis v early infiltrate bnp: 14, not eleavted troponin i: less than 0.02, not elevated Differential Diagnosis Shortness of breath, exacerbation COPD, ACS, NM, CHF, PE, pneumonia Narrative Course Patient placed on personnel monitor with continuous pulse oximetry IV access obtained specimens collected and sent for resulting patient given DuoNeb updraft 2 Patient given additional updrafts DuoNeb 2 Patient aware of lab results Patient continues to demonstrate work of breathing with diminished breath sounds. Patient's case discussed with on-call medicine provider for sort of healthcare Dr. Cui requests patient be admitted to his service for observation Physician Communication Physician Communication discussed with Dr Cui --- OBS Diagnosis Primary Impression: COPD exacerbation Admitting Information Admitting Physician Requests: Observation Mell Sands MD Oct 23, 2017 00:29
[2017-10-23] MEDS: RESP: ALBUTEROL 2.5 MG/IPRATROPIUM 0.5 MG NEB (SCH) INH ×4 (00:36→02:46)
--- NOTE | 2017-10-23 00:51 | RADRPT ---
EXAM DATE/TIME: 10/23/2017 00:31 [facility] COMPARISON: CHEST SINGLE AP, August 09, 2016, 1:34. INDICATIONS : Shortness of breath. MEDICAL HISTORY : Chronic obstructive pulmonary disease. SURGICAL HISTORY : Coronary artery stent. ENCOUNTER: Initial ACUITY: 1 day PAIN SCORE: 0/10 LOCATION: Bilateral chest FINDINGS: A single view of the chest demonstrates the lungs to be symmetrically hyperinflated with emphysematou s changes most prominent in the apices. Right basilar airspace disease. Heart size is normal. Osseous structures are intact. CONCLUSION: 1. Hyperinflation with bilateral severe emphysematous changes, unchanged. 2. Right basilar air space disease may be atelectatic but I cannot exclude an early infiltrate. Lungs are otherwise clear. Demarco Rhoades MD on October 23, 2017 at 0:47 Board Certified Radiologist. This report was verified electronically.
[2017-10-23 01:05] LABS: AUTOMATED NEUTROPHIL # 4.2 TH/MM3 (1.8-7.7); BASOPHIL # 0.1 TH/MM3 (0-0.2); BASOPHIL % 1.4 % (0.0-2.0); EOSINOPHIL # 0.4 TH/MM3 (0-0.4); EOSINOPHIL % 5.4 % (0.0-4.0); HEMATOCRIT 36.2 % (35.0-46.0); HEMOGLOBIN 11.8 GM/DL (11.6-15.3); LYMPH % 26.1 % (9.0-44.0); LYMPHOCYTE # 1.9 TH/MM3 (1.0-4.8); MEAN CELL VOLUME 85.6 FL (80.0-100.0); MEAN CORPUSCULAR HEMOGLOBIN 27.9 PG (27.0-34.0); MEAN CORPUSCULAR HGB CONC 32.6 % (32.0-36.0); MEAN PLATELET VOLUME 8.2 FL (7.0-11.0); MONO % 7.9 % (0.0-8.0); MONOCYTE # 0.6 TH/MM3 (0-0.9); NEUT % 59.2 % (16.0-70.0); PLATELET COUNT 235 TH/MM3 (150-450); RED BLOOD COUNT 4.23 MIL/MM3 (4.00-5.30); RED CELL DISTRIBUTION WIDTH 16.2 % (11.6-17.2); WHITE BLOOD COUNT 7.2 TH/MM3 (4.0-11.0)
[2017-10-23 01:12] LABS: CHLORIDE 110 MEQ/L (98-107); SODIUM (NA) 142 MEQ/L (136-145)
[2017-10-23 01:15] LABS: CALCIUM 8.5 MG/DL (8.5-10.1)
[2017-10-23 01:16] LABS: ALBUMIN 3.6 GM/DL (3.4-5.0); BLOOD UREA NITROGEN 7 MG/DL (7-18); GLUCOSE,RANDOM 93 MG/DL (74-106); MAGNESIUM 1.7 MG/DL (1.5-2.5)
[2017-10-23 01:17] LABS: INTERNATIONAL NORMALIZED RATIO 1.1 RATIO; PROTHROMBIN TIME - PATIENT 10.8 SEC (9.8-11.6)
[2017-10-23 01:19] LABS: ALT (GPT) 13 U/L (10-53); AST (GOT) 10 U/L (15-37); CREATININE 0.56 MG/DL (0.50-1.00); GLOMERULAR FILTRATION RATE 111 ML/MIN (>89)
[2017-10-23 01:20] LABS: TOTAL BILIRUBIN ADULT LESS THAN 0.1 MG/DL (0.2-1.0); TOTAL PROTEIN 6.7 GM/DL (6.4-8.2)
[2017-10-23 01:22] LABS: ALKALINE PHOSPHATASE 54 U/L (45-117)
[2017-10-23 01:24] LABS: TROPONIN I LESS THAN 0.02 NG/ML (0.02-0.05)
[2017-10-23 02:12] LABS: BILIRUBIN, URINE NEG (NEG); BLOOD, URINE NEG (NEG); GLUCOSE,URINE NEG (NEG); KETONE, URINE NEG (NEG); NITRITE,URINE NEG (NEG); PH, URINE 5.5 (5.0-8.5); URINE COLOR YELLOW (YELLW/STRAW); URINE LEUKOCYTE ESTERASE NEG (NEG)
[2017-10-23] MEDS ORDERED: SODIUM CHLORID 0.9% 500 ML INJ 500 ML IV ONE (02:15)
[2017-10-23 02:16] LABS: RBC, URINE 0-2 /hpf (0-3); SQUAMOUS EPITHELIAL CELL URINE 0-5 /hpf (0-5); WBC, URINE 0-2 /hpf (0-5)
[2017-10-23] MEDS ORDERED: RESP: ALBUTEROL 2.5 MG/3 ML NEB (PRN) NEB (06:30)
[2017-10-23] MEDS: RESP: ALBUTEROL 2.5 MG/IPRATROPIUM 0.5 MG NEB (SCH) NEB ×3 (07:45→20:13)
--- NOTE | 2017-10-23 09:00 | HHI.HP ---
HPI Service [facility] Hospitalists Primary Care Physician Maxi Mireles MD Admission Diagnosis exacerbation copd Chief Complaint: sob, cough Travel History International Travel<30 Days: No Contact w/Intl Traveler <30 Da: No Traveled to Known Affected Are: No History of Present Illness 57-year-old female presents to the emergency department by EMS transport from home for shortness of breath. Patient has known COPD requiring supplemental oxygen 2 L/min nasal cannula at all times as well as CPAP at night. Patient is on the care of Dr. Lionel Flowers. Patient states that this is a moderate exacerbation of her COPD and is consistent with previous exacerbations. Patient was given updraft by EMS transport and Solu-Medrol prior to arrival to the emergency department. Patient continues to smoke cigarettes at approximately 1 pack per day. Patient has history of CAD with previous GA. Patient has had some chest tightness that is typical of her COPD and very different from when she had her infarction. No referred neck jaw back shoulder arm or abdominal pain. Patient has 2 pillow orthopnea at all times which is not worsened with current exacerbation. Patient denies any lower extremity pain or swelling. Patient has had productive cough but does not report any hemoptysis. Patient reports her cough is generally more productive in the morning that resolved with nebulizer treatment. However the last couple days she has had more production of cough even later in the day. Patient denies fever or chills. Due to multiple nebulized treatments at home without symptom relief, she called EMS for transport to the emergency department. She has been given nebulizers and Solu-Medrol and supplemental oxygen overnight. She reports she feels fine as long as she stays still with any exertion causes her to have wheezing and shortness of breath. She has not been on antibiotics of late. Review of Systems Constitutional: COMPLAINS OF: Fatigue Eyes: DENIES: Blurred vision, Diplopia, Eye inflammation, Eye pain, Vision loss , Photosensitivity, Double Vision Ears, nose, mouth, throat: DENIES: Tinnitus, Hearing loss, Vertigo, Nasal discharge, Oral lesions, Throat pain, Hoarseness, Ear Pain, Running Nose, Epistaxis, Sinus Pain, Toothache, Odynophagia Respiratory: COMPLAINS OF: Cough, Wheezing, Sputum production, Shortness of breath, DENIES: Apneas, Snoring, Hemoptysis Cardiovascular: COMPLAINS OF: Dyspnea on Exertion, Orthopnea, DENIES: Chest pain, Palpitations, Syncope, PND, Lower Extremity Edema, Claudication Gastrointestinal: DENIES: Abdominal pain, Black stools, Bloody stools, BRB per rectum, Constipation, Diarrhea, GERD, Nausea, Reflux, Vomiting, Difficulty Swallowing, Anorexia, See HPI Genitourinary: COMPLAINS OF: Urgency, DENIES: Abnormal vaginal bleeding, Dysmenorrhea, Dyspareunia, Sexual dysfunction, Urinary frequency, Urinary incontinence, Hematuria, Dysuria, Nocturia, Vaginal discharge Musculoskeletal: COMPLAINS OF: Back pain Hematologic/lymphatic: DENIES: Bruising, Lymphadenopathy Immunologic/allergic: DENIES: Eczema, Urticaria Neurologic: COMPLAINS OF: Paresthesias, DENIES: Abnormal gait, Headache, Localized weakness, Seizures, Speech Problems, Tremor, Poor Balance Psychiatric: COMPLAINS OF: Anxiety, DENIES: Confusion, Mood changes, Depression , Hallucinations, Agitation, Suicidal Ideation, Homicidal Ideation, Delusions, History of Bipolar, History of Schizophrenia Past Family Social History Past Medical History COPD requiring supplemental oxygen 28/02 GERD Coronary artery disease Hyperlipidemia Hypertension Anxiety Major depressive disorder Lupus with neuropathy Environmental allergies Questionable restless leg syndrome Past Surgical History Laparoscopic cholecystectomy Uterine myomectomy Multiple laparoscopies due to adhesions Heart cath in 2006 which she reports is negative section Reported Medications Oxygen (O2) Device 2 Liter BRUCE.CANULA CONTINUOUS PRN Oxygen Concentrator Portable Gaseous 2 L/min via Nasal Canula Continuous Nitroglycerin SL (Nitroglycerin) 0.4 Mg Subl 0.4 Mg SL DIRECTED PRN ONE TABLET UNDER THE TONGUE NEEDED FOR CHEST PAIN, MAY REPEAT EVERY FIVE MINUTES FOR A TOTAL OF 3 DOSES OR CALL 911 IF NO RELIEF Pramipexole (Pramipexole Dihydrochloride) 0.25 Mg Tab 0.25 Mg PO HS Atorvastatin (Atorvastatin Calcium) 20 Mg Tab 20 Mg PO HS Isosorbide Mononitrate 10 Mg Tab 10 Mg PO BID Take 2 doses 7 hours apart. Meloxicam 7.5 Mg Tab 7.5 Mg PO DAILY Trazodone (Trazodone HCl) 150 Mg Tablet 150 Mg PO HS Aspirin 81 (Aspirin) 81 Mg Tabdr 81 Mg PO DAILY Ibuprofen 800 Mg Tab 800 Mg PO Q8H PRN Prednisone 10 Mg Tab 10 Mg PO EVERY OTHER DAY Ventolin Hfa 18 GM Inh (Albuterol Sulfate) 90 Mcg/Act Aer 2 Puff INH Q4H PRN Symbicort Inh (Budesonide/Formoterol Fumarate) 160-4.5 Mcg/Act Aero 2 Puff INH Q12HR Duoneb (Ipratropium-Albuterol Neb) 0.5-2.5 Mg/3 Ml Neb 1 Nebule INH Q6HR NEB PRN Lorazepam 1 Mg Tab 1 Mg PO BID PRN Citalopram (Citalopram Hydrobromide) 40 Mg Tab 40 Mg PO DAILY Alendronate (Alendronate Sodium) 70 Mg Tab 70 Mg PO Q7D Montelukast (Montelukast Sodium) 10 Mg Tab 10 Mg PO HS Omeprazole 40 Mg Cap 40 Mg PO DAILY Theophylline ER 24 HR (Theophylline) 400 Mg Tab 400 Mg PO DAILY Allergies: Coded Allergies: cephalexin (Verified Allergy, Severe, Nausea/Vomiting, 10/23/17) Family History Noncontributory Social History Born in [facility], she lived most of her young life in [place] but 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 Smokes 1 pack per day if she is done for approximately 45 years Rarely drinks alcohol, possibly 1-2 drinks per year Denies illicit drug use Lives with her sister Has 1 adult son who lives in [place] Physical Exam Vital Signs Vital Signs Date Time Temp Pulse Resp B/P (MAP) Pulse Ox O2 Delivery O2 Flow Rate FiO2 10/23/17 07:50 10/23/17 07:50 95 Nasal Cannula 1.00 10/23/17 07:10 94 18 117/72 (87) 94 Nasal Cannula 2.00 10/23/17 07:08 94 Nasal Cannula 2.00 10/23/17 07:08 18 94 Nasal Cannula 2.00 10/23/17 05:30 98.0 88 16 121/68 (85) 96 Nasal Cannula 2.00 10/23/17 03:39 88 16 95 Nasal Cannula 2.00 10/23/17 03:39 88 16 101/54 (70) 95 Nasal Cannula 2.00 10/23/17 02:32 80 16 104/58 (73) 95 Nasal Cannula 10/23/17 01:30 87 16 96/56 (69) 96 Nasal Cannula 2.00 3/18/18 00:31 97 Nasal Cannula 2.00 10/23/17 00:31 97 Nasal Cannula 2.00 10/23/17 00:23 18 97 Nasal Cannula 2.00 10/23/17 00:19 98.0 81 18 102/56 (71) 97 Physical Exam GENERAL: This is a well-nourished, thin, well-developed patient, in no apparent distress. Pleasant and cooperative. SKIN: No rashes, ecchymoses or lesions. Somewhat xerotic. HEAD: Atraumatic. Normocephalic. No temporal or scalp tenderness. EYES: Pupils equal round and reactive. Extraocular motions intact. No scleral icterus. No injection or drainage. ENT: Nose without bleeding, purulent drainage or septal hematoma. Airway patent. NECK: Trachea midline. No JVD or lymphadenopathy. Supple, nontender, no meningeal signs. CARDIOVASCULAR: Regular rate and rhythm without murmurs, gallops, or rubs. RESPIRATORY: Expiratory wheezes noted bilaterally. Fair air movement. No fine crackles. Breath sounds equal bilaterally. GASTROINTESTINAL: Abdomen soft, non-tender, nondistended. No hepato-splenomegaly , or palpable masses. No guarding. MUSCULOSKELETAL: Extremities without clubbing, cyanosis, or edema. No joint tenderness, effusion, or edema noted. Slight tenderness to palpation distal lower extremities which she associates with her neuropathy. NEUROLOGICAL: Awake and alert. Cranial nerves II through XII intact. Motor and sensory grossly within normal limits. Five out of 5 muscle strength in all muscle groups. Normal speech. Laboratory Laboratory Tests Test 10/23/17 00:38 10/23/17 02:03 White Blood Count 7.2 Red Blood Count 4.23 Hemoglobin 11.8 Hematocrit 36.2 Mean Corpuscular Volume 85.6 Mean Corpuscular Hemoglobin 27.9 Mean Corpuscular Hemoglobin Concent 32.6 Red Cell Distribution Width 16.2 Platelet Count 235 Mean Platelet Volume 8.2 Neutrophils (%) (Auto) 59.2 Lymphocytes (%) (Auto) 26.1 Monocytes (%) (Auto) 7.9 Eosinophils (%) (Auto) 5.4 Basophils (%) (Auto) 1.4 Neutrophils # (Auto) 4.2 Lymphocytes # (Auto) 1.9 Monocytes # (Auto) 0.6 Eosinophils # (Auto) 0.4 Basophils # (Auto) 0.1 CBC Comment DIFF FINAL Differential Comment Prothrombin Time 10.8 Prothromb Time International Ratio 1.1 Activated Partial Thromboplast Time 25.3 Blood Urea Nitrogen 7 Creatinine 0.56 Random Glucose 93 Total Protein 6.7 Albumin 3.6 Calcium Level 8.5 Magnesium Level 1.7 Alkaline Phosphatase 54 Aspartate Amino Transf (AST/SGOT) 10 Alanine Aminotransferase (ALT/SGPT) 13 Total Bilirubin LESS THAN 0.1 Sodium Level 142 Potassium Level 3.6 Chloride Level 110 Carbon Dioxide Level 24.0 Anion Gap 8 Estimat Glomerular Filtration Rate 111 Total Creatine Kinase 32 Troponin I LESS THAN 0.02 B-Type Natriuretic Peptide 14 Urine Color YELLOW Urine Turbidity CLEAR Urine pH 5.5 Urine Specific [place] 1.020 Urine Protein NEG Urine Glucose (UA) NEG Urine Ketones NEG Urine Occult Blood NEG Urine Nitrite NEG Urine Bilirubin NEG Urine Urobilinogen 0.2 Urine Leukocyte Esterase NEG Urine RBC 0-2 Urine WBC 0-2 Urine Squamous Epithelial Cells 0-5 Urine Bacteria NONE Microscopic Urinalysis Comment CULT NOT INDICATED Date/Time Source Procedure Growth Status 10/23/17 00:43 Blood Peripheral Aerobic Blood Culture Pending Received 10/23/17 00:43 Blood Peripheral Anaerobic Blood Culture Pending Received Result Diagram: 10/23/178 10/23/1737 Caprini VTE Risk Assessment Caprini VTE Risk Assessment: Mod/High Risk (score >= 2) Caprini Risk Assessment Model Point Value = 1 Point Value = 2 Point Value = 3 Point Value = 5 Age 41-60 Minor surgery BMI > 25 kg/m2 Swollen legs Varicose veins or History of unexplained or recurrent spontaneous Oral contraceptives or hormone replacement Sepsis (< 1 month) Serious lung disease, including pneumonia (< 1 month) Abnormal pulmonary function Acute myocardial infarction Congestive heart failure (< 1 month) History of inflammatory bowel disease Medical patient at bed rest Age 61-74 Arthroscopic surgery Major open surgery (> 45 min) Laparoscopic surgery (> 45 min) Malignancy Confined to bed (> 72 hours) Immobilizing plaster cast Central venous access Age >= 75 History of VTE Family history of VTE Factor V Leiden Prothrombin [id number] Lupus anticoagulant Anticardiolipin antibodies Elevated serum homocysteine Heparin-induced thrombocytopenia Other congenital or acquired thrombophilia Stroke (< 1 month) Elective arthroplasty Hip, pelvis, or leg fracture Acute spinal cord injury (< 1 month) Prophylaxis Regimen Total Risk Factor Score Risk Level Prophylaxis Regimen 0-1 Low Early ambulation 2 Moderate Order ONE of the following: *Sequential Compression Device (SCD) *Heparin 5000 units SQ BID 3-4 Higher Order ONE of the following medications: *Heparin 5000 units SQ TID *Enoxaparin/Lovenox 40 mg SQ daily (WT < 150 kg, CrCl > 30 mL/min) *Enoxaparin/Lovenox 30 mg SQ daily (WT < 150 kg, CrCl > 10-29 mL/min) *Enoxaparin/Lovenox 30 mg SQ BID (WT < 150 kg, CrCl > 30 mL/min) AND/OR *Sequential Compression Device (SCD) 5 or more Highest Order ONE of the following medications: *Heparin 5000 units SQ TID (Preferred with Epidurals) *Enoxaparin/Lovenox 40 mg SQ daily (WT < 150 kg, CrCl > 30 mL/min) *Enoxaparin/Lovenox 30 mg SQ daily (WT < 150 kg, CrCl > 10-29 mL/min) *Enoxaparin/Lovenox 30 mg SQ BID (WT < 150 kg, CrCl > 30 mL/min) AND *Sequential Compression Device (SCD) Assessment and Plan Problem List: (1) COPD exacerbation ICD Codes: J44.1 - Chronic obstructive pulmonary disease with (acute) exacerbation Status: Acute Plan: Continue current therapy. I have added azithromycin. Hopefully will be able to discharge home tomorrow depending on her progress. She notes that she usually takes 2-3 days to recover from her exacerbations. She does not appear to have a home preemptive COPD plan in place. I have discussed such plan with her. I have encouraged her to stop smoking as well. (2) Tobacco dependency ICD Codes: F17.200 - Tobacco dependency Status: Chronic Plan: I have encouraged her to stop smoking. She understands the risks to her health but is unwilling to stop at this point. (3) Coronary artery disease ICD Codes: I25.10 - Atherosclerotic heart disease of [place] coronary artery without angina pectoris Status: Chronic Plan: Seems to be quite stable. Reports negative cath in 2006. Continue home medications. (4) GERD (gastroesophageal reflux disease) ICD Codes: K21.9 - Gastro-esophageal reflux disease without esophagitis Status: Chronic Plan: Continue PPI. (5) Major depression in partial remission ICD Codes: F32.4 - Major depressive disorder, single episode, in partial remission Status: Chronic Plan: Continue Celexa. Use Ativan as needed for anxiety. Code Status full Discussed Condition With Patient and ER provider. Vinny Cui MD PhD Oct 23, 2017 09:00
[2017-10-23] MEDS: AZITHROMYCIN INJ 500 MG in SODIUM CHLOR 0.9% 250 ML INJ 250 ML IV SCH (09:14)
[2017-10-23] MEDS: SODIUM CHLORIDE 0.9% FLUSH 10 ML FLUSH IVF PRN ×2 (09:14→13:24)
[2017-10-23] MEDS: LORazepam 1 MG TAB PO PRN ×2 (09:28→20:21)
[2017-10-23] MEDS: NICOTINE 14 MG/24 HR PATCH T-DERMAL SCH (09:28)
[2017-10-23] MEDS: CITALOPRAM HYDROBROMIDE 40 MG TAB PO SCH (09:28)
[2017-10-23] MEDS: PANTOPRAZOLE SOD 40 MG DELAYED RELEASE TAB PO SCH (09:28)
[2017-10-23] MEDS ORDERED: PILL SPLITTER OTHER PRN (09:30)
[2017-10-23] MEDS: THEOPHYLLINE 200 MG EXTENDED RELEASE CAP PO SCH (12:39)
[2017-10-23] MEDS: MELOXICAM 7.5 MG TAB PO SCH (12:39)
--- NOTE | 2017-10-23 12:54 | EKG ---
Date Performed: 10/23/2017 Time Performed: 00:20:30 PTAGE: 57 years EKG: Sinus rhythm WITH SHORT DE INTERVAL WITH OCCASIONAL SUPRAVENTRICULAR PREMATURE COMPLEXES MINIMAL ST DEPRESSION ROBERT RDERLINE ECG Compared to PREVIOUS TRACING , PACs no longer present, otherwise no significant change. PREVIOUS TRAC IN08/09/2016 01.06 DOCTOR: Isaac Pham Interpretating Date/Time 10/23/2017 12:52:59
[2017-10-23] MEDS: methylPREDNISolone SOD SUCC 40 MG/1 ML VIAL IV PUSH SCH ×2 (13:24→22:47)
[2017-10-23] MEDS: ISOSORBIDE MONONITRATE 20 MG TAB PO SCH (17:18)
[2017-10-23] MEDS ORDERED: MONTELUKAST SODIUM 10 MG TAB PO SCH (21:00)
[2017-10-23] MEDS ORDERED: ATORVASTATIN 20 MG TAB PO SCH (21:00)
[2017-10-23] MEDS ORDERED: traZODone HCL 100 MG TAB PO SCH (21:00)
[2017-10-23] MEDS ORDERED: PRAMIPEXOLE DIHYDROCHLORIDE 0.25 MG TAB PO SCH (21:00)
[2017-10-24] VITALS (7 sets, daily range): BP systolic 133–190; BP diastolic 71–85; PULSE 66–97; RESP 16–22; TEMP 96.2–97.9; O2SAT 93–98
--- NOTE | 2017-10-24 06:04 | HHI.PR ---
Subjective Remarks Reports that lung still feel a little "tight" but overall improved. Slept relatively well. No fevers. Objective Vitals Vital Signs Date Time Temp Pulse Resp B/P (MAP) Pulse Ox O2 Delivery O2 Flow Rate FiO2 10/24/17 04:00 97.9 85 17 141/71 (94) 96 10/24/17 00:00 97.5 81 17 133/79 (97) 98 10/23/17 20:38 76 10/23/17 20:12 97 Nasal Cannula 2.00 10/23/17 20:00 97 Nasal Cannula 2.00 10/23/17 20:00 96.2 79 18 142/75 (97) 97 10/23/17 16:00 98.1 95 18 161/74 (103) 94 10/23/17 12:00 97.5 78 16 112/53 (72) 96 10/23/17 08:00 97.1 83 18 117/74 (88) 96 10/23/17 07:50 10/23/17 07:50 95 Nasal Cannula 1.00 10/23/17 07:10 94 18 117/72 (87) 94 Nasal Cannula 2.00 10/23/17 07:08 94 Nasal Cannula 2.00 10/23/17 07:08 18 94 Nasal Cannula 2.00 GENERAL: Sleeping, arouses to voice, alert and oriented. Cooperative. SKIN: Warm and dry. HEAD: Normocephalic. EYES: No scleral icterus. No injection or drainage. NECK: Supple, trachea midline. No JVD or lymphadenopathy. CARDIOVASCULAR: Regular rate and rhythm without murmurs, gallops, or rubs. RESPIRATORY: Breath sounds equal bilaterally. Fair air movement. No crackles. Occasional expiratory wheeze in the bases. GASTROINTESTINAL: Abdomen soft, non-tender, nondistended. MUSCULOSKELETAL: No cyanosis, or edema. BACK: No CVA tenderness. Result Diagram: 10/23/173710/23/1737 Urinary Catheter: No Vascular Central Line Catheter: No A/P Problem List: (1) COPD exacerbation ICD Codes: J44.1 - Chronic obstructive pulmonary disease with (acute) exacerbation Status: Acute Plan: Continue current therapy as she seems to be improving. Hopefully will be able to discharge home this afternoon. She notes that she usually takes 2-3 days to recover from her exacerbations. She does not appear to have a home preemptive COPD plan in place. I have discussed such plan with her. I have encouraged her to stop smoking as well. (2) Tobacco dependency ICD Codes: F17.200 - Tobacco dependency Status: Chronic Plan: I have encouraged her to stop smoking. She understands the risks to her health but is unwilling to stop at this point. (3) Coronary artery disease ICD Codes: I25.10 - Atherosclerotic heart disease of [place] coronary artery without angina pectoris Status: Chronic Plan: Seems to be quite stable. Reports negative cath in 2006. Continue home medications. (4) GERD (gastroesophageal reflux disease) ICD Codes: K21.9 - Gastro-esophageal reflux disease without esophagitis Status: Chronic Plan: Continue PPI. (5) Major depression in partial remission ICD Codes: F32.4 - Major depressive disorder, single episode, in partial remission Status: Chronic Plan: Continue Celexa. Use Ativan as needed for anxiety. Discharge Planning Hopefully discharge home later this afternoon if she continues to improve. Vinny Cui MD PhD Oct 24, 2017 06:04
[2017-10-24] MEDS ORDERED: NICO14DI23 T-DERMAL (06:09)
[2017-10-24] MEDS ORDERED: PRED20 PO (06:09)
[2017-10-24] MEDS ORDERED: AZIT250T3 PO (06:09)
[2017-10-24] MEDS: methylPREDNISolone SOD SUCC 40 MG/1 ML VIAL IV PUSH SCH ×2 (06:11→12:59)
[2017-10-24] MEDS: RESP: ALBUTEROL 2.5 MG/IPRATROPIUM 0.5 MG NEB (SCH) NEB ×2 (07:32→13:08)
[2017-10-24] MEDS ORDERED: ASPIRIN EC 81 MG TABEC PO SCH (09:00)
[2017-10-24] MEDS ORDERED: REMOVE OLD PATCH T-DERMAL SCH (09:00)
[2017-10-24] MEDS: AZITHROMYCIN INJ 500 MG in SODIUM CHLOR 0.9% 250 ML INJ 250 ML IV SCH (09:55)
[2017-10-24] MEDS: NICOTINE 14 MG/24 HR PATCH T-DERMAL SCH (09:58)
[2017-10-24] MEDS: CITALOPRAM HYDROBROMIDE 40 MG TAB PO SCH (10:06)
[2017-10-24] MEDS: MELOXICAM 7.5 MG TAB PO SCH (10:06)
[2017-10-24] MEDS: PANTOPRAZOLE SOD 40 MG DELAYED RELEASE TAB PO SCH (10:06)
[2017-10-24] MEDS: THEOPHYLLINE 200 MG EXTENDED RELEASE CAP PO SCH (10:07)
[2017-10-24] MEDS: LORazepam 1 MG TAB PO PRN (10:08)
[2017-10-24] MEDS: ISOSORBIDE MONONITRATE 20 MG TAB PO SCH (10:22)
== END 2017-10-24 14:48 | disposition home or self-care (01) ==
LOC: PHED 23:42 → PHEDA 10-23 02:14 → PHEDH 10-23 06:21 → PH3B 10-23 07:41
PROVIDERS: ADMIT Family Medicine; ATTEND Family Medicine
DX: J44.1 Chronic obstructive pulmonary disease with (acute) exacerbation (principal); I25.10 Atherosclerotic heart disease of native coronary artery without angina pectoris; F17.210 Nicotine dependence, cigarettes, uncomplicated; K21.9 Gastro-esophageal reflux disease without esophagitis; I25.2 Old myocardial infarction; R07.89 Other chest pain; I10 Essential (primary) hypertension; G25.81 Restless legs syndrome; E78.5 Hyperlipidemia, unspecified; G47.30 Sleep apnea, unspecified; F32.4 Major depressive disorder, single episode, in partial remission; E78.00 Pure hypercholesterolemia, unspecified; K59.00 Constipation, unspecified; Z99.81 Dependence on supplemental oxygen; Z79.82 Long term (current) use of aspirin; R94.31 Abnormal electrocardiogram [ECG] [EKG]
CPT/HCPCS: 71045; 80053; 81001; 82550; 83735; 83880; 84484; 85025; 85610; 85730; 87040; 93005; 94640; 94664; 96361; 96365; 96366; 96375; 96376; 99285; G0378; J0456; J2920; J7040; J7050